=== PATIENT | male | born 1970 | race Caucasian/White ===

== ENCOUNTER 2016-09-28 10:20 | Emergency (ER) | payer MEDICARE ==
[2016-09-28] MEDS ORDERED: 0.9 % SODIUM CHLORIDE 1,000 ML BAG IV ONE (10:46)
[2016-09-28 10:59] LABS: URINE APPEARANCE CLEAR; URINE BILIRUBIN NEGATIVE (NEGATIVE); URINE BLOOD NEGATIVE (NEGATIVE); URINE COLOR YELLOW; URINE GLUCOSE (UA) NEGATIVE (NEGATIVE); URINE KETONE NEGATIVE (NEGATIVE); URINE LEUKOCYTE ESTERASE NEGATIVE (NEGATIVE); URINE NITRITE NEGATIVE (NEGATIVE); URINE PROTEIN NEGATIVE (NEGATIVE); URINE UROBILINOGEN 0.2 E.U./dL (0.20 - 1.00)
[2016-09-28 11:08] LABS: AMPHETAMINE SCREEN URINE NOT DETECTED; BARBITURATE SCREEN URINE NOT DETECTED; BENZODIAZEPINE SCREEN URINE NOT DETECTED; COCAINE SCREEN URINE NOT DETECTED; METHADONE SCREEN URINE NOT DETECTED; METHAMPHETAMINE SCREEN NOT DETECTED; OPIATE SCREEN URINE NOT DETECTED; OXYCODONE SCREEN URINE NOT DETECTED; PHENCYCLIDINE SCREEN URINE NOT DETECTED; PROPOXYPHENE SCREEN URINE NOT DETECTED; THC SCREEN URINE DETECTED; TRICYCLIC ANTIDEPRESSANT SCRN NOT DETECTED
[2016-09-28 11:08] LABS: BASO % 0.3 % (0-6); EOS % 0.2 % (0-6); GRAN % 75.2 % (47-80); HEMATOCRIT 38.4 % (42.0-52.0); HEMOGLOBIN 12.9 gm/dl (14.0-18.0); LYMPH % 14.4 % (16-45); MEAN CELL VOLUME 97.7 fl (81-97); MEAN CORPUSCULAR HEMOGLOBIN 32.8 pg (27-33); MEAN CORPUSCULAR HGB CONC 33.6 g/dl (32-36); MEAN PLATELET VOLUME 9.1 fl (7.4-10.4); MONO % 9.9 % (0-9); PLATELET COUNT 285 K/uL (130-400); RED BLOOD COUNT 3.93 M/uL (4.40-5.70); RED CELL DISTRIBUTION WIDTH 12.7 % (11.5-14.5); WHITE BLOOD COUNT W/O DIFF 11.5 K/uL (4.2-12.2)
--- NOTE | 2016-09-28 11:22 | Emergency Department Record ---
History of Present Illness - General Chief Complaint: Overdose Stated Complaint: OD Time Seen by Provider: 09/28/16 10:37 Source: Patient Mode of Arrival: Wheelchair Limitations: No limitations - History of Present Illness Initial Comments: pt took extra wellbutrin in an effort to get high. the story keeps changing but apparently he took some last night [9?] and some this morning [3?]. family brought him in because he is confused and unable to walk. 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, cocaine, salts, herbs, alcohol etc Complaint: Intentional overdose Onset/Timin -: Days(s) - Fox Coma Scale Eye Response: (4) Open spontaneously Motor Response: (6) Obeys commands Verbal Response: (4) Confused conversation Fox Total: 14 Substance Ingested: wellbutrin Number of Pills Ingested: 12 - Detail Intent: Unwilling to say, Other (wanted to get high) How Overdose Was Discovered: Family/friend present at time Context: Accidental Overdose: Wanted to get high Context: Intentional Overdose: Drug/ETOH problems Associated Symptoms: Hallucinations Treatments Prior to Arrival: None - Related Data Home Medications Medication Instructions Recorded Confirmed Last Taken Benztropine Mesylate [Cogentin] 1 mg PO BID 06/22/16 09/28/16 1 Day Ago Carbamazepine [Tegretol] 450 mg PO BID 06/22/16 09/28/16 1 Day Ago Bupropion HCl [Wellbutrin Xl] 300 mg PO DAILY 09/28/16 09/28/16 Unknown Ferrous Sulfate 325 mg PO DAILY 09/28/16 09/28/16 Unknown Fluphenazine HCl 10 mg PO BID 09/28/16 09/28/16 Unknown Hydroxyzine Pamoate [Vistaril] 25 mg PO BID PRN 09/28/16 09/28/16 Unknown Ropinirole HCl [Ropinirole ER] 2 mg PO QHS 09/28/16 09/28/16 Unknown Allergies Allergy/AdvReac Type Severity Reaction Status Date / Time No Known Drug Allergies Allergy Verified 06/29/16 11:13 Travel Screening - Travel/Exposure Within Last 30 Days Have you traveled within the last 30 days?: No Review of Systems Reviewed: No additional complaints except as noted below Constitutional: Reports: As per HPI. Denies: Chills, Fever, Malaise, Night sweats, Weakness, Weight change Eyes: Reports: As per HPI. Denies: Eye discharge, Eye pain, Photophobia, Vision change ENT: Reports: As per HPI. Denies: Congestion, Dental pain, Ear pain, Epistaxis , Hearing loss, Throat pain Respiratory: Reports: As per HPI. Denies: Cough, Dyspnea, Hemoptysis, Stridor, Wheezes Cardiovascular: Reports: As per HPI. Denies: Arrhythmia, Chest pain, Dyspnea on exertion, Edema, Murmurs, Orthopnea, Palpitations, Paroxysmal nocturnal dyspnea, Rheumatic Fever, Syncope Endocrine: Reports: As per HPI. Denies: Fatigue, Heat or cold intolerance, Polydipsia, Polyuria Gastrointestinal: Reports: As per HPI. Denies: Abdominal pain, Constipation, Diarrhea, Hematemesis, Hematochezia, Melena, Nausea, Vomiting Genitourinary: Reports: As per HPI. Denies: Dysuria, Frequency, Hematuria, Incontinence, Retention, Testicular pain, Testicular mass, Urgency Musculoskeletal: Reports: As per HPI. Denies: Arthralgia, Back pain, Gout, Joint swelling, Myalgia, Neck pain Skin: Reports: As per HPI. Denies: Bruising, Change in color, Change in hair/ nails, Lesions, Pruritus, Rash Neurological: Reports: As per HPI. Denies: Abnormal gait, Confusion, Headache, Numbness, Paresthesias, Seizure, Tingling, Tremors, Vertigo, Weakness Psychiatric: Reports: As per HPI. Denies: Anxiety, Auditory hallucinations, Depression, Homicidal thoughts, Suicidal thoughts, Visual hallucinations Hematological/Lymphatic: Reports: As per HPI. Denies: Anemia, Blood Clots, Easy bleeding, Easy bruising, Swollen glands Past Medical History - SOCIAL HISTORY Smoking Status: Never smoker Alcohol Use: None Drug Use: None - RESPIRATORY Hx Respiratory Disorders: No - CARDIOVASCULAR Hx Cardio Disorders: No - NEURO Hx Neuro Disorders: No - GI Hx GI Disorders: No - Hx Genitourinary Disorders: Yes Hx Kidney Stones: Yes - ENDOCRINE Hx Endocrine Disorders: No - MUSCULOSKELETAL Hx Musculoskeletal Disorders: No - PSYCH Hx Psych Problems: Yes Hx Behavior Problems: Yes Comment:: bipolar - HEMATOLOGY/ONCOLOGY Hx Hematology/Oncology Disorders: No Family Medical History Any Significant Family History?: Yes Family Hx Comment (NOT TO BE USED IN PLACE OF ITEMS BELOW): cancer Hx Cancer: Father, Grandparents Physical Exam - General General Appearance: Alert, Cooperative, Mild distress - Head Head exam: Normal inspection - Eye Eye exam: Normal appearance, PERRL, EOMI Pupils: Normal accommodation - ENT ENT exam: Normal exam, Mucous membranes moist, Normal external ear exam, Normal orophraynx, TM's normal bilaterally Ear exam: Normal external inspection. negative: External canal tenderness Nasal Exam: Normal inspection. negative: Discharge, Sinus tenderness Mouth exam: Normal external inspection, Tongue normal Teeth exam: Normal inspection. negative: Dental caries Throat exam: Normal inspection. negative: Tonsillar erythema, Tonsillar exudate - Neck Neck exam: Normal inspection, Full ROM. negative: Tenderness - Respiratory Respiratory exam: Normal lung sounds bilaterally. negative: Respiratory distress - Cardiovascular Cardiovascular Exam: Normal rhythm, Normal heart sounds, Tachycardia - GI/Abdominal GI/Abdominal exam: Soft, Normal bowel sounds. negative: Tenderness - Rectal Rectal exam: Deferred - exam: Deferred - Extremities Extremities exam: Normal inspection, Full ROM, Normal capillary refill. negative: Tenderness - Back Back exam: Reports: Normal inspection, Full ROM. Denies: Muscle spasm, Rash noted, Tenderness - Neurological Neurological exam: Alert, CN II-XII intact, Normal gait, Other (confused and ataxic). negative: Oriented X3 - Psychiatric Psychiatric exam: Normal affect, Normal mood - Skin Skin exam: Dry, Intact, Normal color, Warm Course Vital Signs 09/28/16 10:25 Temperature 97.9 F Pulse Rate 124 H Respiratory 36 H Rate Blood Pressure 159/112 - Reevaluation(s) Reevaluation #1: 09/28/16 11:59 d/w [facility] and [facility] Reevaluation #2: 09/28/16 12:16 d/w dr bethea Medical Decision Making - Lab Data Result diagrams: 09/28/16 10:45 09/28/16 10:45 Lab Results 09/28/16 09/28/16 09/28/16 Range/Units 10:45 10:50 10:50 WBC 11.5 (4.2-12.2) K/uL RBC 3.93 L (4.40-5.70) M/uL Hgb 12.9 L (14.0-18.0) gm/dl Hct 38.4 L (42.0-52.0) % MCV 97.7 H (81-97) fl MCH 32.8 (27-33) pg MCHC 33.6 (32-36) g/dl RDW 12.7 (11.5-14.5) % Plt Count 285 (130-400) K/uL MPV 9.1 (7.4-10.4) fl Gran % 75.2 (47-80) % Lymphocytes % 14.4 L (16-45) % Monocytes % 9.9 H (0-9) % Eosinophils % 0.2 (0-6) % Basophils % 0.3 (0-6) % Urine Color Yellow Urine Appearance Clear Urine pH 7.0 (5.0-8.0) Ur Specific [place] <= 1.005 (1.002-1.030) Urine Protein Negative (NEGATIVE) Urine Glucose (UA) Negative (NEGATIVE) Urine Ketones Negative (NEGATIVE) Urine Blood Negative (NEGATIVE) Urine Nitrite Negative (NEGATIVE) Urine Bilirubin Negative (NEGATIVE) Urine Urobilinogen 0.2 (0.20 - 1.00) E.U./dL Ur Leukocyte Esterase Negative (NEGATIVE) Urine Opiates Screen Not detected Ur Oxycodone Screen Not detected Urine Methadone Screen Not detected Ur Propoxyphene Screen Not detected Ur Barbituates Screen Not detected Ur Tricyclics Screen Not detected Ur Phencyclidine Scrn Not detected Ur Amphetamine Screen Not detected U Methamphetamines Scrn Not detected U Benzodiazepines Scrn Not detected Urine Cocaine Screen Not detected Urine Cannabis Screen Detected Disposition Disposition: Transfer Clinical Impression: Overdose Qualifiers: Encounter type: initial encounter Injury intent: accidental or unintentional Qualified Code(s): T50.901A - Poisoning by unspecified drugs, medicaments and biological substances, accidental (unintentional), initial encounter Disposition: Acute Care Hospital Transfer Transfer To: [facility] Reason For Transfer: needs icu or stepdown bed for overdose Accepting Physician: dr bethea Time Discussed w/Accepting Physician: 12:17 Forms: Patient Portal Access
[2016-09-28 11:24] LABS: ALB/GLOB RATIO 1.7 (1.1-1.8); ALBUMIN 3.8 gm/dL (3.5-5.0); ALKALINE PHOSPHATASE 56 U/L (38-126); ALT/SGPT 40 U/L (21-72); AST/SGOT 42 U/L (17-59); BLOOD UREA NITROGEN 7 mg/dL (9-20); CREATININE 0.8 mg/dL (0.66-1.25); EST GLOMERULAR FILTRATION RATE > 60 ml/min; GLUCOSE,RANDOM 94 mg/dL (70-110); TOTAL PROTEIN 6.1 gm/dL (6.3-8.2)
[2016-09-28 11:25] LABS: ACETAMINOPHEN < 10.0 ug/mL (10.0-30.0); SALICYLATE < 1.0 mg/dL (2.8-20.0)
[2016-09-28 12:13] LABS: AMMONIA < 8.7 umol/L (9-30)
== END 2016-09-28 13:44 | disposition short-term general hospital (02) ==
LOC: ER 10:20
DX: T43.291A Poisoning by other antidepressants, accidental (unintentional), initial encounter (principal); R41.0 Disorientation, unspecified; R26.0 Ataxic gait
CPT/HCPCS: 99285 ×2; 96360; 82140; 85025; 80053; 81003; 93005; 93010; G0480 ×3; G0477; 80320; 80329; J7030

== ENCOUNTER 2016-12-29 23:53 | Emergency (ER) | payer MEDICARE ==
[2016-12-30] MEDS ORDERED: ACETAMINOPHEN 1,000 MG in SODIUM CHLORIDE 1 BAG IVPB ONE (00:03)
[2016-12-30] MEDS ORDERED: ONDANSETRON HCL IV 4 MG/2 ML VIAL IVP ONE (00:03)
--- NOTE | 2016-12-30 00:03 | Emergency Department Record ---
History of Present Illness - General Chief Complaint: Headache Migraine Stated Complaint: HEADACHE Time Seen by Provider: 12/29/16 23:58 Source: Patient Mode of Arrival: Ambulatory Limitations: No limitations - History of Present Illness Initial Comments: 46 yo male presents with a headache. the headache started just prior to arrival at about 11pm. He when to bed at about 9pm and felt normal. He woke up at 11pm with the headache, nausea, and light sensitivity. He has had one similar headache like this in the past about 2 years ago. No unusual health issues recently. No head trauma. He has Bipolar. He is on his medications for the bipolar and states he is doing very well. No fevers. No neck pain. No vision changes. MD Complaint: Headache -: Hour(s) (1) Onset Description: Sudden, Awoke with symptoms Location: Frontal Severity: Severe Quality: Aching, Similar to previous headaches (similar but headaches are rare for him) Improves With: Nothing Worsens With: None Associated Symptoms: Nausea, Vomiting Treatments Prior to Arrival: None - Related Data Home Medications Medication Instructions Recorded Confirmed Last Taken Benztropine Mesylate [Cogentin] 1 mg PO BID 06/22/16 12/30/16 1 Day Ago Carbamazepine [Tegretol] 450 mg PO BID 06/22/16 09/28/16 1 Day Ago Bupropion HCl [Wellbutrin Xl] 300 mg PO DAILY 09/28/16 09/28/16 Unknown Ferrous Sulfate 325 mg PO DAILY 09/28/16 09/28/16 Unknown Fluphenazine HCl 10 mg PO BID 09/28/16 12/30/16 Unknown Hydroxyzine Pamoate [Vistaril] 25 mg PO BID PRN 09/28/16 09/28/16 Unknown Ropinirole HCl [Ropinirole ER] 2 mg PO QHS 09/28/16 09/28/16 Unknown Allergies Allergy/AdvReac Type Severity Reaction Status Date / Time No Known Drug Allergies Allergy Verified 06/29/16 11:13 Review of Systems Constitutional: Denies: Chills, Fever, Malaise, Weakness Eyes: Denies: Eye discharge ENT: Denies: Congestion, Throat pain Respiratory: Denies: Cough, Dyspnea, Hemoptysis, Stridor, Wheezes Cardiovascular: Denies: Chest pain, Palpitations, Syncope Endocrine: Denies: Fatigue, Polydipsia, Polyuria Gastrointestinal: Reports: Nausea, Vomiting. Denies: Abdominal pain, Diarrhea Genitourinary: Denies: Hematuria, Urgency Musculoskeletal: Denies: Arthralgia, Back pain, Joint swelling, Myalgia, Neck pain Skin: Denies: Bruising, Change in color Neurological: Reports: Headache. Denies: Confusion, Numbness, Tingling, Tremors , Vertigo, Weakness Psychiatric: Reports: Anxiety Hematological/Lymphatic: Denies: Blood Clots, Easy bleeding, Easy bruising, Swollen glands Past Medical History - SOCIAL HISTORY Smoking Status: Never smoker Drug Use: None - RESPIRATORY Hx Respiratory Disorders: No - CARDIOVASCULAR Hx Cardio Disorders: No - NEURO Hx Neuro Disorders: No - GI Hx GI Disorders: No - Hx Genitourinary Disorders: Yes Hx Kidney Stones: Yes - ENDOCRINE Hx Endocrine Disorders: No - MUSCULOSKELETAL Hx Musculoskeletal Disorders: No - PSYCH Hx Psych Problems: Yes Hx Behavior Problems: Yes Comment:: bipolar - HEMATOLOGY/ONCOLOGY Hx Hematology/Oncology Disorders: No Family Medical History Family Hx Comment (NOT TO BE USED IN PLACE OF ITEMS BELOW): cancer Hx Cancer: Father, Grandparents Physical Exam - General General Appearance: Alert, Oriented x3, Cooperative, No acute distress Limitations: No limitations - Head Head exam: Atraumatic, Normocephalic, Normal inspection Head exam detail: negative: Abrasion, Contusion, Hematoma, Laceration - Eye Eye exam: Normal appearance, PERRL, EOMI. negative: Conjunctival injection, Periorbital swelling, Scleral icterus - ENT ENT exam: Normal exam, Mucous membranes moist Ear exam: Normal external inspection Nasal Exam: Normal inspection Mouth exam: Normal external inspection Teeth exam: Normal inspection Throat exam: Normal inspection - Neck Neck exam: Normal inspection, Full ROM. negative: Lymphadenopathy, Meningismus , Tenderness, Thyromegaly - Respiratory Respiratory exam: Normal lung sounds bilaterally. negative: Respiratory distress - Cardiovascular Cardiovascular Exam: Regular rate, Normal rhythm, Normal heart sounds Peripheral Pulses: 2+: Radial (R), Radial (L) - GI/Abdominal GI/Abdominal exam: Soft - Rectal Rectal exam: Deferred - exam: Deferred - Extremities Extremities exam: Normal inspection, Full ROM, Normal capillary refill. negative: Pedal edema, Tenderness - Back Back exam: Reports: Normal inspection, Full ROM. Denies: Muscle spasm, Rash noted, Tenderness - Neurological Neurological exam: Alert, CN II-XII intact, Normal gait, Oriented X3, Reflexes normal. negative: Altered, Motor sensory deficit - Psychiatric Psychiatric exam: Normal affect, Normal mood - Skin Skin exam: Dry, Intact, Normal color, Warm Course - Reevaluation(s) Reevaluation #1: The patient presents with a severe headache that awoke him from his sleep. I explained that new or severe headaches are of significant concern. I recommended head CT Scan and LP. I discussed the concerns of bleeding and the recommended work up. I did explain that HCT in the first 6 hours of onset is the most sensitive but LP would be offered as well to rule out a significant cause such as bleeding. He understands my concerns and the risks. He states he will have a CT scan but strongly is opposed to an LP understanding the concerns I expressed. 12/30/16 00:10 Reevaluation #2: The labs were reviewed No acute changes The HCT was reported by [facility] as no acute intracranial disease, right maxillary sinusitis. 12/30/16 00:55 Reevaluation #3: I again discussed the recommendation for LP given the nature of his headache. We again discussed the reasons for doing the LP. He still declines. He understands my concerns and his decision is to not have the LP. I discussed signing AMA form given this. He understands signing AMA and agrees His nausea is gone. His headache is greatly improved. 12/30/16 00:57 12/30/16 01:03 Medical Decision Making - Lab Data Result diagrams: 12/30/16 00:07 12/30/16 00:07 Disposition Disposition: Discharge Clinical Impression: Headache Disposition: Home, Self-Care Condition: (2) Stable Instructions: Acute Headache (ED), Against Medical Advice (ED) Additional Instructions: Return any time for further evaluation of your headache Call your doctor tomorrow to discuss this visit and the tests performed in the ER Forms: Patient Portal Access Time of Disposition: 01:04
[2016-12-30 00:13] LABS: BASO % 0.4 % (0-6); EOS % 1.8 % (0-6); GRAN % 49.5 % (47-80); HEMATOCRIT 42.9 % (42.0-52.0); LYMPH % 37.7 % (16-45); MEAN CELL VOLUME 97.9 fl (81-97); MEAN CORPUSCULAR HGB CONC 32.6 g/dl (32-36); MEAN PLATELET VOLUME 8.7 fl (7.4-10.4); MONO % 10.6 % (0-9); PLATELET COUNT 369 K/uL (130-400); RED BLOOD COUNT 4.38 M/uL (4.40-5.70); WHITE BLOOD COUNT W/O DIFF 11.2 K/uL (4.2-12.2)
[2016-12-30 00:15] LABS: MEAN CORPUSCULAR HEMOGLOBIN 31.9 pg (27-33)
[2016-12-30 00:26] LABS: INR 0.93; PARTIAL THROMBOPLASTIN TIME 25.8 SECONDS (24.5-39.1); PROTHROMBIN TIME (PATIENT) 10.5 SECONDS (9.5-12.1)
[2016-12-30 00:31] LABS: ANION GAP 7.6 (7-16); BLOOD UREA NITROGEN 12 mg/dL (9-20); CARBON DIOXIDE 29.4 mmol/L (22-30); EST GLOMERULAR FILTRATION RATE > 60 ml/min; GLUCOSE,RANDOM 108 mg/dL (70-110)
[2016-12-30] MEDS ORDERED: ONDANSETRON 4 MG ODT TABLET SL ONE (01:04)
[2016-12-30] MEDS ORDERED: ACETAMINOPHEN 500 MG TABLET PO PRN (01:05)
== END 2016-12-30 01:26 | disposition home or self-care (01) ==
LOC: ER 23:53
DX: R51 Headache (principal); R11.2 Nausea with vomiting, unspecified
CPT/HCPCS: 70450; 80048; 85025; 85610; 85730; 96374; 96375; 99284; J2405

== ENCOUNTER 2017-05-12 05:43 | Emergency (ER) | payer MEDICARE ==
[2017-05-12] MEDS: 0.9 % SODIUM CHLORIDE 1000ML 1,000 ML IV SCH (06:00)
--- NOTE | 2017-05-12 06:08 | Emergency Department Record ---
History of Present Illness - General Chief complaint: Vomiting Stated complaint: ABDOMINAL PAIN Time Seen by Provider: 05/12/17 06:01 Source: Patient Mode of Arrival: Ambulatory Limitations: No limitations - History of Present Illness Initial comments: 47 yo male presents to ED with a CC of intermittent nausea and vomiting symptoms associated with mild-moderate epigastria abdominal pain symptoms. Patient reports a history of similar symptoms 3-4 years ago related to H. Pylori. Patient denies fevers, chills, or recent illness. 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 MD complaint: Abdominal pain, Nausea, Vomiting Onset/Timin -: Week(s) Description of Vomiting: Food contents Associated Abdominal Pain: Yes Location: Diffuse Severity: Moderate Severity scale (1-10): 6 Quality: Aching, Dull Consistency: Intermittent Improves with: Vomiting Worsens with: Eating Context: Other Associated Symptoms: Nausea/vomiting - Related Data Previous Rx's Medication Instructions Recorded Lansoprazole/Amoxiciln/Clarith 1 each PO DAILY #1 combo..pkg 05/12/17 [Prevpac Patient Pack] Allergies Allergy/AdvReac Type Severity Reaction Status Date / Time No Known Drug Allergies Allergy Verified 06/29/16 11:13 Travel Screening - Travel/Exposure Within Last 30 Days Have you traveled within the last 30 days?: No - Travel Symptoms Symptom Screening: None Review of Systems Constitutional: Denies: Chills, Fever, Malaise, Night sweats Eyes: Denies: Eye discharge, Eye pain ENT: Denies: Congestion, Ear pain, Epistaxis Respiratory: Denies: Cough, Dyspnea Cardiovascular: Denies: Chest pain, Dyspnea on exertion Endocrine: Denies: Fatigue, Heat or cold intolerance Gastrointestinal: Reports: Abdominal pain, Nausea, Vomiting. Denies: Constipation Genitourinary: Denies: Incontinence, Retention Musculoskeletal: Denies: Arthralgia, Back pain, Gout, Joint swelling Skin: Denies: Bruising, Change in color Neurological: Denies: Abnormal gait, Confusion, Headache, Seizure Psychiatric: Denies: Anxiety Hematological/Lymphatic: Denies: Anemia, Blood Clots Past Medical History - SOCIAL HISTORY Smoking Status: Never smoker Alcohol Use: None Drug Use: None - RESPIRATORY Hx Respiratory Disorders: No - CARDIOVASCULAR Hx Cardio Disorders: No - NEURO Hx Neuro Disorders: No - GI Hx GI Disorders: No - Hx Genitourinary Disorders: Yes Hx Kidney Stones: Yes - ENDOCRINE Hx Endocrine Disorders: No - MUSCULOSKELETAL Hx Musculoskeletal Disorders: No - PSYCH Hx Psych Problems: Yes Hx Behavior Problems: Yes Comment:: bipolar - HEMATOLOGY/ONCOLOGY Hx Hematology/Oncology Disorders: No Family Medical History Any Significant Family History?: Yes Family Hx Comment (NOT TO BE USED IN PLACE OF ITEMS BELOW): cancer Hx Cancer: Father, Grandparents Physical Exam - General General Appearance: Alert, Oriented x3, Cooperative, Moderate distress Limitations: No limitations - Head Head exam: Atraumatic, Normocephalic, Normal inspection Head exam detail: negative: Abrasion, Contusion, Vance's sign, General tenderness, Hematoma, Laceration - Eye Eye exam: Normal appearance. negative: Conjunctival injection, Periorbital swelling, Periorbital tenderness, Scleral icterus - ENT Ear exam: negative: Auricular hematoma, Auricular trauma Nasal Exam: negative: Active bleeding, Discharge, Dried blood, Foreign body Mouth exam: negative: Drooling, Laceration, Muffled voice, Tongue elevation - Neck Neck exam: Normal inspection. negative: Meningismus, Tenderness - Respiratory Respiratory exam: Normal lung sounds bilaterally. negative: Rales, Respiratory distress, Rhonchi, Stridor - Cardiovascular Cardiovascular Exam: Regular rate, Normal rhythm, Normal heart sounds - GI/Abdominal GI/Abdominal exam: Soft, Tenderness (very mild TTP to the periumbilical). negative: Rebound, Rigid - Rectal Rectal exam: Deferred - exam: Deferred - Extremities Extremities exam: Normal inspection. negative: Calf tenderness, Pedal edema, Tenderness - Back Back exam: Denies: CVA tenderness (R), CVA tenderness (L) - Neurological Neurological exam: Alert, Normal gait, Oriented X3 - Psychiatric Psychiatric exam: Normal affect, Normal mood - Skin Skin exam: Normal color. negative: Abrasion Type of lesion: negative: abrasion Course Vital Signs 05/12/17 05:49 Temperature 98.7 F Pulse Rate [ 96 H Pulse Ox Probe] Respiratory 16 Rate Blood Pressure 131/118 [Left Arm] Pulse Ox 99 - Reevaluation(s) Reevaluation #1: 05/12/17 06:23 Patient seen and examined, abdominal examination is benign with no evidence for a surgical process on exam. Will obtain laboratory studies and administer a GI cocktail in ED with a plan to treat for H. Pylori assuming his laboratory studies are unremarkable for an acute process. Reevaluation #2: 05/12/17 06:28 Labs reviewed and are grossly unremarkable for an acute process. Repeat abdominal examination fails to demonstrate any acute surgical process on examination. Patient was updated on all results and agrees with the plan for treatment of the patient's H. Pylori as an outpatient and agrees with that CT imaging is not necessary at this time. 05/12/17 06:30 Medical Decision Making - Lab Data Result diagrams: 05/12/17 05:58 05/12/17 05:58 Disposition Disposition: Discharge Clinical Impression: Nausea & vomiting Qualifiers: Vomiting type: unspecified Vomiting Intractability: non-intractable Qualified Code(s): R11.2 - Nausea with vomiting, unspecified Disposition: Home, Self-Care Condition: (2) Stable Instructions: Acute Nausea and Vomiting (ED) Additional Instructions: Return to ED if your symptoms worsen or if you have any concerns. Prevpak as directed. [facility]. Prescriptions: Lansoprazole/Amoxiciln/Clarith [Prevpac Patient Pack] 1 each PO DAILY #1 combo..pkg Forms: Patient Portal Access Time of Disposition: 06:10 Quality - Quality Measures Quality Measures: N/A - Blood Pressure Screening Does Patient Have Any of the Following: No Blood Pressure Classification: Hypertensive Reading Systolic Measurement: 131 Diastolic Measurement: 118 Screening for High Blood Pressure: < First Hypertensive BP, F/U Documented > [ [id number]] First Hypertensive Follow-up Interventions: Referral to alternative/primary care provider.
[2017-05-12 06:09] LABS: BASO % 0.8 % (0-6); EOS % 2.7 % (0-6); GRAN % 53.7 % (47-80); HEMATOCRIT 41.3 % (42.0-52.0); HEMOGLOBIN 13.4 gm/dl (14.0-18.0); MEAN CELL VOLUME 100.7 fl (81-97); MEAN CORPUSCULAR HEMOGLOBIN 32.6 pg (27-33); MEAN CORPUSCULAR HGB CONC 32.4 g/dl (32-36); MEAN PLATELET VOLUME 8.4 fl (7.4-10.4); MONO % 12.8 % (0-9); PLATELET COUNT 472 K/uL (130-400); RED CELL DISTRIBUTION WIDTH 12.8 % (11.5-14.5); WHITE BLOOD COUNT W/O DIFF 7.4 K/uL (4.2-12.2)
[2017-05-12] MEDS: ONDANSETRON HCL IV 4 MG/2 ML VIAL IVP ONE (06:11)
[2017-05-12 06:19] LABS: ALB/GLOB RATIO 1.6 (1.1-1.8); ALBUMIN 3.5 gm/dL (3.5-5.0); ALKALINE PHOSPHATASE 40 U/L (38-126); ALT/SGPT 51 U/L (21-72); ANION GAP 6.1 (7-16); AST/SGOT 30 U/L (17-59); BILIRUBIN,TOTAL 0.39 mg/dL (0.2-1.3); BLOOD UREA NITROGEN 13 mg/dL (9-20); CARBON DIOXIDE 27.9 mmol/L (22-30); CREATININE 0.9 mg/dL (0.66-1.25); EST GLOMERULAR FILTRATION RATE > 60 ml/min; GLUCOSE,RANDOM 140 mg/dL (70-110); LIPASE 70 U/L (23-300); TOTAL PROTEIN 5.7 gm/dL (6.3-8.2)
[2017-05-12] MEDS: MAGNESIUM HYDROXIDE/AL HYDROX 30 ML, LIDOCAINE VISC 2% 200 MG PO ONE ×2 (06:19)
== END 2017-05-12 06:43 | disposition home or self-care (01) ==
LOC: ER 05:43
DX: R11.2 Nausea with vomiting, unspecified (principal); R10.13 Epigastric pain
CPT/HCPCS: 99284 ×2; 96374; 83690; 85025; 80053; J2405; J7030

== ENCOUNTER 2017-08-18 03:26 | Emergency (ER) | payer MEDICARE ==
[2017-08-18] MEDS ORDERED: ONDANSETRON 4 MG ODT TABLET SL ONE (03:55)
[2017-08-18] MEDS ORDERED: KETOROLAC 30 MG/ML VIAL IM ONE (03:55)
--- NOTE | 2017-08-18 03:58 | Emergency Department Record ---
History of Present Illness - General Chief Complaint: Headache Migraine Stated Complaint: HEADACHE Time Seen by Provider: 08/18/17 03:52 Source: Patient Mode of Arrival: Ambulatory - History of Present Illness Initial Comments: 47 yo male presents with a headache. He states it started around 2am. he gets similar headaches 2-3 times per year. He had some nausea and vomiting. this occurs with headaches. No fever. No recent trauma. No other recent illness. No fever. No cough. No changes in vision, coordination. No current PCP. MD Complaint: Headache Onset/Timin -: Minutes(s) Onset Description: Sudden Location: Diffuse Severity: Moderate Severity scale (1-10): 10 Consistency: Constant Improves With: Nothing Worsens With: Light, Noise Treatments Prior to Arrival: None - Related Data Previous Rx's Medication Instructions Recorded Lansoprazole/Amoxiciln/Clarith 1 each PO DAILY #1 combo..pkg 05/12/17 [Prevpac Patient Pack] Allergies Allergy/AdvReac Type Severity Reaction Status Date / Time No Known Drug Allergies Allergy Verified 06/29/16 11:13 Travel Screening - Travel/Exposure Within Last 30 Days Have you traveled within the last 30 days?: No - Travel/Exposure Within Last Year Have you traveled outside the [place] in the last year?: No - Additonal Travel Details Have you been exposed to anyone with a communicable illness?: No - Travel Symptoms Symptom Screening: None Review of Systems Constitutional: Denies: Chills, Fever, Weakness Eyes: Denies: Eye discharge, Eye pain, Vision change ENT: Denies: Congestion, Throat pain Respiratory: Denies: Cough, Dyspnea Cardiovascular: Denies: Chest pain, Palpitations, Syncope Endocrine: Denies: Fatigue Gastrointestinal: Denies: Abdominal pain, Diarrhea, Nausea, Vomiting Genitourinary: Denies: Dysuria, Frequency, Hematuria Musculoskeletal: Denies: Arthralgia, Back pain, Joint swelling, Myalgia Skin: Denies: Bruising, Change in color, Rash Neurological: Reports: Headache. Denies: Abnormal gait, Confusion, Numbness, Paresthesias, Tingling, Tremors, Vertigo, Weakness Psychiatric: Denies: Anxiety, Depression Hematological/Lymphatic: Denies: Blood Clots, Easy bleeding, Easy bruising, Swollen glands Past Medical History - SOCIAL HISTORY Smoking Status: Never smoker Alcohol Use: None Alcohol Use Comment: 6mos sober Drug Use: None - RESPIRATORY Hx Respiratory Disorders: No - CARDIOVASCULAR Hx Cardio Disorders: No - NEURO Hx Neuro Disorders: No - GI Hx GI Disorders: No - Hx Genitourinary Disorders: Yes Hx Kidney Stones: Yes - ENDOCRINE Hx Endocrine Disorders: No - MUSCULOSKELETAL Hx Musculoskeletal Disorders: No - PSYCH Hx Psych Problems: Yes Hx Behavior Problems: Yes Comment:: bipolar - HEMATOLOGY/ONCOLOGY Hx Hematology/Oncology Disorders: No Family Medical History Any Significant Family History?: No Family Hx Comment (NOT TO BE USED IN PLACE OF ITEMS BELOW): cancer Hx Cancer: Father, Grandparents Physical Exam - General General Appearance: Alert, Oriented x3, Cooperative, No acute distress Limitations: No limitations - Head Head exam: Atraumatic, Normocephalic, Normal inspection - Eye Eye exam: Normal appearance. negative: Conjunctival injection - ENT ENT exam: Normal exam, Mucous membranes moist Ear exam: Normal external inspection Nasal Exam: Normal inspection Mouth exam: Normal external inspection - Neck Neck exam: Normal inspection, Full ROM. negative: Tenderness - Respiratory Respiratory exam: Normal lung sounds bilaterally. negative: Respiratory distress, Rhonchi, Stridor, Wheezes - Cardiovascular Cardiovascular Exam: Regular rate, Normal rhythm, Normal heart sounds - GI/Abdominal GI/Abdominal exam: Soft. negative: Tenderness - Rectal Rectal exam: Deferred - exam: Deferred - Extremities Extremities exam: Normal inspection, Full ROM, Normal capillary refill. negative: Tenderness - Back Back exam: Reports: Normal inspection, Full ROM. Denies: Muscle spasm, Rash noted, Tenderness - Neurological Neurological exam: Alert, CN II-XII intact, Normal gait, Oriented X3, Reflexes normal. negative: Abnormal gait, Altered, Motor sensory deficit - Psychiatric Psychiatric exam: Normal affect, Normal mood. negative: Agitated, Anxious - Skin Skin exam: Dry, Intact, Normal color, Warm Course Vital Signs 08/18/17 03:34 Temperature 98.3 F Pulse Rate [ 65 Pulse Ox Probe] Respiratory 16 Rate Blood Pressure 151/100 [Left Arm] Pulse Ox 100 - Reevaluation(s) Reevaluation #1: 08/18/17 04:10 The patient reports the headache is very similar to his typical No acute finds on exam or by history 08/18/17 04:26 The patient is doing much better. [place] home with information for follow up with a local PCP 08/18/17 04:28 Headache resolved at DC Disposition Disposition: Discharge Clinical Impression: Headache Qualifiers: Headache type: unspecified Headache chronicity pattern: acute headache Intractability: not intractable Qualified Code(s): R51 - Headache Disposition: Home, Self-Care Condition: (1) Good Instructions: Acute Headache (ED) Additional Instructions: Rest and stay well hydrated today Call for a new doctor Return if you have any return of symptoms or new concerns Forms: Patient Portal Access Time of Disposition: 04:27 Quality - Quality Measures Quality Measures: N/A - Blood Pressure Screening Does Patient Have Any of the Following: No Blood Pressure Classification: Hypertensive Reading Systolic Measurement: 151 Diastolic Measurement: 100 Screening for High Blood Pressure: < Pre-Hypertensive BP, F/U Documented > [ [id number]] Pre-Hypertensive Follow-up Interventions: Referral to alternative/primary care provider.
== END 2017-08-18 04:35 | disposition home or self-care (01) ==
LOC: ER 03:26
DX: R51 Headache (principal); R11.2 Nausea with vomiting, unspecified
CPT/HCPCS: 99283 ×2; 96372; J1885